=== PATIENT | female | born 1950 | race Caucasian/White ===

== ENCOUNTER 2020-07-29 08:53 | Outpatient (CLI) | payer MEDICARE, OTHER, SELFPAY ==
--- NOTE | ~2020-07-29 | MM_ITS ---
EXAMINATION: MM screening [facility] HISTORY: Screening mammogram TECHNIQUE: Craniocaudal and mediolateral oblique 3-D tomosynthesis images were obtained and synthetic 2-D images were generated. CAD analysis was submitted and interpreted. COMPARISON: 07/27/2019, 07/25/2018, 07/19/2017 bilateral digital screening mammogram examinations BREAST PARENCHYMAL COMPOSITION: There are scattered areas of fibroglandular density. FINDINGS: There is no evidence of suspicious mass, calcification, or architectural distortion to sugg est malignancy in either breast. There has been no suspicious interval change. IMPRESSION: 1. No mammographic evidence of malignancy. 2. Recommend routine screening mammography in one year. BI-RADS Category 1: Negative Reviewed, dictated and finalized at location A. ED GOLD PLATER
== END 2020-07-29 08:54 | disposition home or self-care (01) ==
PROVIDERS: PCP Internal Medicine; Visit Provider Internal Medicine
DX: Z12.31 Encounter for screening mammogram for malignant neoplasm of breast (principal)
CPT/HCPCS: 77063; 77067

== ENCOUNTER 2021-08-26 08:15 | Outpatient (CLI) | payer MEDICARE, OTHER, SELFPAY ==
--- NOTE | ~2021-08-26 | MM_ITS ---
EXAMINATION: MM screening [facility] BI w mackenzie HISTORY: Screening mammogram TECHNIQUE: Craniocaudal and mediolateral oblique 3-D tomosynthesis images were obtained and synthetic 2-D images were generated. CAD analysis was submitted and interpreted. COMPARISON: 07/29/2020, 07/27/2019, 07/25/2018 BREAST PARENCHYMAL COMPOSITION: There are scattered areas of fibroglandular density. FINDINGS: There is no evidence of suspicious mass, calcification, or architectural distortion to sugg est malignancy in either breast. There has been no suspicious interval change. IMPRESSION: 1. No mammographic evidence of malignancy. 2. Recommend routine screening mammography in one year. BI-RADS Category 1: Negative Reviewed, dictated and finalized at location A. F OF STAFF DOCTOR
== END 2021-08-26 08:16 | disposition home or self-care (01) ==
LOC: CHSIMG 08:17
PROVIDERS: PCP Internal Medicine; Visit Provider Internal Medicine
DX: Z12.31 Encounter for screening mammogram for malignant neoplasm of breast (principal)
CPT/HCPCS: 77063; 77067

== ENCOUNTER 2022-08-28 12:23 | Outpatient (CLI) | payer MEDICARE, OTHER, SELFPAY ==
--- NOTE | ~2022-08-28 | MM_ITS ---
EXAMINATION: MM screening [facility] HISTORY: Screening TECHNIQUE: Craniocaudal and mediolateral oblique 3-D tomosynthesis images were obtained and synthetic 2-D images were generated. CAD analysis was submitted and interpreted. COMPARISON: Comparison to multiple prior studies sequentially, with oldest reviewed study dated 07/07. BREAST PARENCHYMAL COMPOSITION: There are scattered areas of fibroglandular density. FINDINGS: There is no evidence of suspicious mass, calcification, or architectural distortion to sugg est malignancy in either breast. There has been no suspicious interval change. IMPRESSION: 1. No mammographic evidence of malignancy. 2. Recommend routine screening mammography in one year. BI-RADS Category 1: Negative Reviewed, dictated and finalized at location A. RIALS ENGINEER
== END 2022-08-28 12:24 | disposition home or self-care (01) ==
LOC: CHSIMG 12:24
PROVIDERS: PCP Internal Medicine; Visit Provider Internal Medicine
DX: Z12.31 Encounter for screening mammogram for malignant neoplasm of breast (principal)
CPT/HCPCS: 77063; 77067

== ENCOUNTER 2023-08-31 10:46 | Outpatient (CLI) | payer MEDICARE, OTHER, SELFPAY ==
--- NOTE | ~2023-08-31 | MM_ITS ---
EXAMINATION: MM screening [facility] w [facility] HISTORY: Screening mammogram TECHNIQUE: Craniocaudal and mediolateral oblique 3-D tomosynthesis images were obtained and synthetic 2-D images were generated. CAD analysis was submitted and interpreted. COMPARISON: 08/28/2022, 08/26/2021, 07/29/2020 screening mammogram examinations BREAST PARENCHYMAL COMPOSITION: There are scattered areas of fibroglandular density. FINDINGS: There is no evidence of suspicious mass, calcification, or architectural distortion to sugg est malignancy in either breast. There has been no suspicious interval change. IMPRESSION: 1. No mammographic evidence of malignancy. 2. Recommend routine screening mammography in one year. BI-RADS Category 1: Negative Reviewed, dictated and finalized at location A. SPECIAL EDUCATION TEACHER
== END 2023-08-31 10:47 | disposition home or self-care (01) ==
LOC: CHSIMG 10:49
PROVIDERS: PCP Internal Medicine; Visit Provider Internal Medicine
DX: Z12.31 Encounter for screening mammogram for malignant neoplasm of breast (principal)
CPT/HCPCS: 77063; 77067

== ENCOUNTER 2024-06-23 12:56 | Outpatient (RCR) | payer MEDICARE, OTHER, SELFPAY ==
--- NOTE | 2024-06-27 07:37 | BUOTOPEVAL ---
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 The patient recieved surgery 06/19/2024 and is in the healing process with incision still open with stitches. The patient previously demonstrated WNL AROM, strength and coordination, following surgery, the patient now demonstrates scar buildup, minimal edema, minimally impaired AROM of R hand digit flexion, minimally impaired fine motor coordination and pain in R hand that affects her ability to perform ADLs/IADLs. The patient requires skilled OT to address deficits and return to PLOF for increased independence during self care tasks and decreased difficulty dropping items due to pain. Plan of Care Interventions Therapeutic Exercise,Manual Therapy,Neuro Re- education,Therapeutic Activities,Hot Pack/Cold Pack,Electrical Stimulation,Sensory Integrative Techn,Self-Care/Home Management,Ultrasound OT Services Indicated Yes Treatment Frequency and 2x/week for 12 visits. Duration These treatments will address the objective and functional deficits as defined above. The patient will be advanced safely and appropriately in order for the patient to progress towards his/her prior level of function. Additional exercises will be introduced and as well as a comprehensive home exercise program upon discharge, if needed, ?to ensure carryover of functional gains achieved in the clinic. This treatment plan has been reviewed and agreement upon by the patient.
--- NOTE | 2024-06-27 07:37 | OPREHPOC ---
Outpatient Therapy Plan of Care This is a Multidisciplinary Plan of Care that may contain components documented by all disciplines (PT, OT, and ST.) OT Problem 1 OT Problem #1 Knowledge Deficit OT Goal 1 Goal / Goal Update The patient will demonstrate 100% knowledge and return demonstration of UE HEP in order to achieve highest outcomes for independence in daily life. Target Visit 12 OT Problem 2 OT Problem #2 Impaired Range of Motion OT Goal 1 Goal / Goal Update The patient will demonstrate WNL composite digit flexion at R hand increasing AROM by 5 degrees to each joint of digits 4-5 in order to decrease dropping items during everyday tasks. R small finger MP: 55 degrees, PIP 75 degrees, DIP 40 degrees R ring finger MP: 52 degrees, PIP 79 degrees, DIP 30 degrees Target Visit 12 OT Problem 3 OT Problem #3 Impaired Coordination OT Goal 1 Goal / Goal Update The patient will demonstrate increased fine motor coordination by performing 9-hole peg test in <28 seconds in order to achieve WNL coordination to perform cooking tasks independently. Target Visit 12 OT Problem 4 OT Problem #4 Impaired Flexibility OT Goal 1 Goal / Goal Update The patient will demonstrate 100% knowledge and return demonstration for scar massage with compliance to perform per therapist education upon total healing of scar on R hand in order to decrease scar buildup and limit ROM for IADLs. Target Visit 12 OT Goal 2 Goal / Goal Update The patient will demonstrate decreased edema of R hand by measuring DPC at 20 cm and proximal phalanx of ring finger at 6 cm in order to achieve full composite grasp for grooming tasks. Edema measurements R UE: -DPC: 21 cm -Proximal phalanx of ring finger: 6.4 cm Target Visit 12 OT Problem 5 OT Problem #5 Impaired Strength OT Goal 1 Goal / Goal Update Upon healing of incision and clearance from MD, the patient will demonstrate WNL fuel retrofitting technician strength of R hand in order to achieve independence and avoid injury during ADLs. Target Visit 12 OT Goal 2 Goal / Goal Update The patient will demonstrate <2/10 pain during activity in order to decrease discomfort during everyday tasks. Target Visit 12
--- NOTE | 2024-08-01 14:57 | BUOTOPDC ---
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 Reported Pain Level Pain Score 0: Self Report Pain Score 0: Self Report Pain Score 0: Self Report Pain Score 5: Self Report Pain Score 2: Self Report Pain Score 0: Self Report Pain Score 2: Self Report Pain Score 0: Self Report Pain Score Mild Pain: Ruff Buckley Pain Score 0: Self Report Pain Score 4: Self Report Pain Score 5: Self Report Assessment OT Clinical Summary The patient demonstrates significant progress in edema, pain, AROM of digits, and scientist strength and fine motor coordination which has led to increased use of hand during daily tasks as patient is able to grasp and hold items needed to perform grooming tasks. The patient continues to demonstrate deficits in digit AROM, scientist strength, and pain due to continued scar buildup and sensitivity to palm area. The patient demonstrates improvement in function with change in [employer] questionnaire from 84% to 50% demonstrating significant improvement but continued dysfunction of R hand. The patient demonstrates good potential for continued therapy treatment, at this time, the patient will be returning to [place] for multiple months and will no longer receive services at this location. The patient would benefit from continued OT services in [place] in order to address scar buildup, pain, digit AROM and hand strength needed to fully improve function of affected UE. The patient is discharged this date with HEP for completion until seen by another OT at new location. Plan of Care Interventions Therapeutic Exercise,Manual Therapy,Neuro Re- education,Therapeutic Activities,Hot Pack/Cold Pack,Electrical Stimulation,Sensory Integrative Techn,Self-Care/Home Management,Ultrasound OT Services Indicated No
--- NOTE | 2024-08-01 14:57 | OPREHPOC ---
Outpatient Therapy Plan of Care This is a Multidisciplinary Plan of Care that may contain components documented by all disciplines (PT, OT, and ST.) OT Problem 1 OT Problem #1 Knowledge Deficit OT Goal 1 Goal / Goal Update The patient will demonstrate 100% knowledge and return demonstration of UE HEP in order to achieve highest outcomes for independence in daily life. Target Visit 12 Progress Met OT Problem 2 OT Problem #2 Impaired Range of Motion OT Goal 1 Goal / Goal Update The patient will demonstrate WNL composite digit flexion at R hand increasing AROM by 5 degrees to each joint of digits 4-5 in order to decrease dropping items during everyday tasks. EVAL R small finger MP: 55 degrees, PIP 75 degrees, DIP 40 degrees R ring finger MP: 52 degrees, PIP 79 degrees, DIP 30 degrees DISCHARGE R small finger MP: 82 degrees, PIP 92 degrees, DIP 71 degrees R ring finger MP: 87 degrees, PIP 92 degrees, DIP 55 degrees Target Visit 12 Progress Met OT Problem 3 OT Problem #3 Impaired Coordination OT Goal 1 Goal / Goal Update The patient will demonstrate increased fine motor coordination by performing 9-hole peg test in <28 seconds in order to achieve WNL coordination to perform cooking tasks independently. DISCHARGE: 26 seconds Target Visit 12 Progress Partially Met OT Problem 4 OT Problem #4 Impaired Flexibility OT Goal 1 Goal / Goal Update The patient will demonstrate 100% knowledge and return demonstration for scar massage with compliance to perform per therapist education upon total healing of scar on R hand in order to decrease scar buildup and limit ROM for IADLs. GOAL MET; 07/31/24 Target Visit 12 Progress Met OT Goal 2 Goal / Goal Update The patient will demonstrate decreased edema of R hand by measuring DPC at 20 cm and proximal phalanx of ring finger at 6 cm in order to achieve full composite grasp for grooming tasks. Edema measurements R UE AT DISCHARGE: -DPC: 20 cm -Proximal phalanx of ring finger: 6.2 cm Target Visit 12 Progress Met OT Problem 5 OT Problem #5 Impaired Strength OT Goal 1 Goal / Goal Update Upon healing of incision and clearance from MD, the patient will demonstrate WNL billet shearer strength of R hand in order to achieve independence and avoid injury during ADLs. PERSONAL SUPPORT WORKER STRENGTH: 30 lb in R hand; 56 lb in L hand 50 is norm for R hand Target Visit 12 Progress Partially Met OT Goal 2 Goal / Goal Update The patient will demonstrate <2/10 pain during activity in order to decrease discomfort during everyday tasks. 4/10 pain; 07/31/24 Target Visit 12
== END 2024-07-31 13:45 | disposition home or self-care (01) ==
LOC: CHSOT 12:56
DX: M65.351 Trigger finger, right little finger (principal); M72.0 Palmar fascial fibromatosis [Dupuytren]; M65.341 Trigger finger, right ring finger
CPT/HCPCS: 97110; 97140; 97165; 97530

== ENCOUNTER 2024-09-01 14:41 | Outpatient (CLI) | payer MEDICARE, OTHER, SELFPAY ==
--- NOTE | ~2024-09-01 | MM_ITS ---
EXAMINATION: MM screening [facility] BI w mackenzie HISTORY: Screening TECHNIQUE: Craniocaudal and mediolateral oblique 3-D tomosynthesis images were obtained and synthetic 2-D images were generated. CAD analysis was submitted and interpreted. COMPARISON: 08/31/2023 and dating back to 07/27/2019 BREAST PARENCHYMAL COMPOSITION: There are scattered areas of fibroglandular density. FINDINGS: Punctate calcifications are detected bilaterally, stable and benign in appearance. Stable parenchymal pattern without suspicious microcalcifications, architectural distortion, discrete masses or significant asymmetry. IMPRESSION: 1. No mammographic evidence of malignancy. 2. Recommend routine screening mammography in one year. BI-RADS Category 2: Benign finding(s). Reviewed, dictated and finalized at location A. ER CHIEF
== END 2024-09-01 14:42 | disposition home or self-care (01) ==
LOC: CHSIMG 14:43
PROVIDERS: PCP Internal Medicine; Visit Provider Internal Medicine
DX: Z12.31 Encounter for screening mammogram for malignant neoplasm of breast (principal)
CPT/HCPCS: 77063; 77067